=== PATIENT | female | born 1955 | race Caucasian/White ===

== ENCOUNTER → 2018-04-15 | Outpatient (CLI) | payer OTHER ==
--- NOTE | 2018-04-15 11:14 | WOMENS IMAGING REPORT ---
EXAM DESCRIPTION: BILAT SCREENING MAMMO W/CAD COMPLETED DATE/TIME: 04/15/2018 7:54 am REASON FOR STUDY: SCREENING MAMMO Z12.31 ENCNTR SCREEN MAMMOGRAM FOR MALIGNANT NEOPLASM OF [facility] COMPARISON: 2016 TECHNIQUE: Standard craniocaudal and mediolateral oblique views of each breast recorded using digita l acquisition. LIMITATIONS: None. FINDINGS: No masses, calcifications or architectural distortion. No areas of suspicion. Read with the assistance of CAD. .[facility] - R2 Cenova Version 1.3 .[facility] - R2 Cenova Version 1.3 .[facility] - R2 Cenova Version 2.4 .[facility] - R2 Cenova Version 2.4 .[facility] - R2 Instructional Material Director Version 9.2 IMPRESSION: NORMAL MAMMOGRAM. BIRADS 1. BREAST DENSITY: b. There are scattered areas of fibroglandular density. BIRAD: 1 NEGATIVE RECOMMENDATION: ROUTINE SCREENING COMMENT: The patient has been notified of the results by letter per SA requirements. Additional no tification policies are in place for contacting patient with suspicious or incomplete findings. Quality ID #[id number]: The [employer] recommends an annual screening mammogram for women aged 40 years or over. This facility utilizes a reminder system to ensure that all patients receive reminder letters, and/or direct phone calls for appointments. This includes reminders for routine scr eening mammograms, diagnostic mammograms, or other Breast Imaging Interventions when appropriate. Th is patient will be placed in the appropriate reminder system. The [employer] (ACR) has developed recommendations for screening MRI of the breast s in certain patient populations, to be used in conjunction with mammography. Breast MRI surveillanc e may be appropriate for women with more than 20% lifetime risk of developing breast cancer as deter mined by genetic testing, significant family history of the disease, or history of mantle radiation f or Hodgkins Disease. ACR Practice Guidelines 2008. TECHNICAL DOCUMENTATION: FINDING NUMBER: (1) ASSESSMENT: (1) JOB ID: [id number] [employer]- All Rights Reserved Reading location - IP/workstation name: [email or web address]
== END ==
LOC: WI 07:27
PROVIDERS: ATTEND Nurse Practitioner Family
DX: Z12.31 Encounter for screening mammogram for malignant neoplasm of breast (principal)
CPT/HCPCS: 77067

== ENCOUNTER 2018-04-25 07:12 | Day surgery (SDC) | payer OTHER ==
[2018-04-25] MEDS ORDERED: PROPOFOL INJ 200 MG/20 ML VIAL IV ONE ×2 (07:27→08:31)
[2018-04-25 09:16] VITALS: BP 105/70
--- NOTE | 2018-04-25 14:25 | Operative Report ---
Operative Report DATE OF SURGERY: 04/25/18 Operative Report: The risks, benefits and alternatives of the procedure including the risks of bleeding, perforation requiring surgery are explained to the patient in detail and informed consent is obtained. Patient is brought back to the endoscopy suite and placed in the left, lateral decubital position. Timeout was called. Propofol medication is administered. A rectal examination is done which did not reveal any masses, tears or fissures. An Olympus videoscope was introduced into the patient's rectum. The scope was then carefully advanced all the way to the cecum. The cecum was identified by the usual anatomical landmarks of the ileocecal valve was the appendiceal office. Photodocumentation is obtained. The scope was then sequentially pulled back via the various segments of the colon including the ascending colon, hepatic flexure, transverse colon, splenic flexure, descending colon and finally into the rectosigmoid portions of the colon. Retroflexion maneuver is performed. PREOPERATIVE DIAGNOSIS: Colorectal cancer screening POSTOPERATIVE DIAGNOSIS: Right-sided colon inflammation status post biopsy rule out collagenous colitis. Diverticulosis to a moderate degree. Internal hemorrhoids OPERATION: Colonoscopy with biopsy SURGEON: ROSIE SHARP ANESTHESIA: LMAC TISSUE REMOVED OR ALTERED: As noted above. COMPLICATIONS: None. ESTIMATED BLOOD LOSS: None. INTRAOPERATIVE FINDINGS: As noted above. PROCEDURE: Patient tolerated the procedure well. No immediate postprocedure complications are noted. Patient discharged in good condition. Discharge date 04/25/2018. Discharge diet: Regular. Discharge activity: Regular. 2-3-week follow-up to discuss findings. Patient is instructed to call the office or proceed to the emergency room should there be any further proximal questions. Wait on the pathology. If biopsies is negative consider a 7-year colon screening
== END 2018-04-25 09:03 | disposition home or self-care (01) ==
LOC: END 07:12
PROVIDERS: ATTEND Internal Medicine Gastroenterology
DX: Z12.11 Encounter for screening for malignant neoplasm of colon (principal); K52.9 Noninfective gastroenteritis and colitis, unspecified; K57.30 Diverticulosis of large intestine without perforation or abscess without bleeding; K64.8 Other hemorrhoids; E78.5 Hyperlipidemia, unspecified; M19.90 Unspecified osteoarthritis, unspecified site; Z87.891 Personal history of nicotine dependence; Z79.899 Other long term (current) drug therapy
CPT/HCPCS: 45380; 88305 ×2; J2704; 811

== ENCOUNTER → 2019-10-05 | Outpatient (CLI) | payer BC ==
--- NOTE | 2019-10-05 10:35 | ER RDC ASSESSMENT REPORT ---
Intake - In the Last 14 days Have you traveled outside [place]?: No Have you been in close contact with someone CONFIRMED: No Worked in Healthcare?: No - Symptoms Subjective Fever([place] feverish): Yes Chills: Yes Muscule Aches: Yes Runny Nose: No Sore Throat: Yes Cough (New or worsening chronic cough): Yes Shortness of breath: Yes Nausea or Vomiting: Yes --How many day(s)?: Reports has vomited Headache: No Abdominal Pain: Yes Diarrhea(3 or more loose stools in last 24 hours): No - Do you have any of the following Chronic lung disease: Asthma or emphysema or COPD: No Cystic Fibrosis: No Diabetes: No High Blood Pressure: No Cardiovascular Disease: Yes Cardiovascular Disease Comment: History of high cholesterol Chronic Kidney Disease: No Chronic Liver Disease: No Chronic blood disorder like Sickle Cell Disease: No Weak immune system due to disease or medication: No Neurologic condition that limits movement: No Neurological Condition Comment: With a history of migraines Developmental delay - Moderate to Severe: No Recent (within past 2 weeks) or current : No Morbid Obesity (>100 pounds over ideal weight): No Obesity Comment: Height 5 feet 2 inches weight 188 pounds - Objective Temperature: 98.0 F Objective: Given above, testing performed: If Testing Performed: Test Specimen Type Sent to General - General Information source: Patient Notes: Patient here to [facility] for Covid testing. States started feeling sick on Wednesday with fever as much as 103. Plans to contact PCP today. - Related Data Allergies/Adverse Reactions: No Known Allergies Allergy (Verified 04/25/18 07:56) Past Medical History - Social History Smoking Status: Never Smoker - Past Medical History Cardiac Medical History: Denies: Hx Coronary Artery Disease, Hx Heart Attack, Hx Hypertension Pulmonary Medical History: Denies: Hx Asthma, Hx Bronchitis, Hx COPD, Hx Pneumonia Neurological Medical History: Denies: Hx Cerebrovascular Accident, Hx Seizures Musculoskeletal Medical History: Denies Hx Arthritis Physical Exam - General General appearance: Appears well, Alert In distress: None Notes: PHYSICAL EXAMINATION: GENERAL: Well-appearing and in no acute distress. HEAD: Atraumatic, normocephalic. EYES: sclera anicteric, conjunctiva are normal. ENT: nares patent. Moist mucous membranes. NECK: Normal range of motion, supple without lymphadenopathy LUNGS: CTAB and equal. No wheezes rales or rhonchi. Respirations even and unlabored. Lung sounds clear. HEART: Regular rate and rhythm without murmurs ABDOMEN: Soft, nontender, normal bowel sounds, no guarding. EXTREMITIES: No cyanosis. NEUROLOGICAL: Normal speech. PSYCH: Normal mood, normal affect. SKIN: Warm, Dry, normal turgor, Diagnostic Results Laboratory Results: Patient instructed on negative rapid strep and negative rapid flu results. Pending strep culture. Pending Covid testing results. Patient provided instructions on COVID to include: As a person under investigation for Covid 19, the [facility], division of public health advises you to adhere to the following guidance until your test results are reported to you. If your test result is positive, you will receive additional information from your provider and your local health department at that time. Remain at home until you are cleared by the health provider or public health authorities. Keep a log of visitors to your home, notify any visitors to your home of your isolation status. If you plan to move to a new address or leave the [facility], notify the local health department in your [facility]. Call your doctor or seek care if you have an urgent medical need. Before seeking medical care, call ahead to get instructions from the provider before arriving at the medical office clinic or hospital. Notify them that you are being tested for the virus that causes Covid 19 so that arrangements can be made, as necessary, to prevent transmission to others in the healthcare setting. Next, notify the local health department in your [facility]. If a medical emergency arises and you need to call 911, inform the first responders that you are being tested for the virus that causes Covid 19. Next, notify the local health department in your [facility]. Patient Education/Counseling Counseling/Education: Patient presents with upper respiratory symptoms worrisome for possible Covid 19. Patient does not have emergency worring symptoms such as difficulty breathing, shortness of breath, chest pain, pressure, confusion or cyanosis. Patient appears suitable for discharge. Patient to follow up with PCP today. Instructed to go to the ED for persistent or worsening symptoms. Patient's vital signs are stable and patient is nontoxic in appearance. Good return precautions have been discussed with patient, patient verbalized understanding and is agreeable with discharge plan of care at this time. RDC Discharge - Discharge Clinical Impression: COVID - 19 SCREENING Condition: Stable Disposition: Home; Selfcare
[2019-10-05 11:31] LABS: A TYPE INFLUENZA AG NEGATIVE (NEGATIVE); B INFLUENZA AG NEGATIVE (NEGATIVE)
== END ==
LOC: RDC 09:54
PROVIDERS: ATTEND Nurse Practitioner Family
DX: Z20.828 Contact with and (suspected) exposure to other viral communicable diseases (principal); R50.9 Fever, unspecified; R05 Cough; R06.02 Shortness of breath; J02.9 Acute pharyngitis, unspecified; R11.11 Vomiting without nausea; R10.9 Unspecified abdominal pain; M79.10 Myalgia, unspecified site; E78.00 Pure hypercholesterolemia, unspecified
CPT/HCPCS: 87070; 87635; 87804; 87880; 99211

== ENCOUNTER 2019-10-07 18:46 | Emergency (ER) | payer BC ==
[2019-10-07 21:09] LABS: ABSOLUTE MONOCYTES (AUTO) 0.5 10^3/uL (0.1-1.4); ABSOLUTE NEUT (AUTO) 4.8 10^3/uL (1.7-8.2); BASOPHILS % (AUTO) 0.5 % (0-2); EOSINOPHILS % (AUTO) 0.3 % (0-6); HEMATOCRIT 39.5 % (36.0-47.0); MEAN CORPUSCULAR HEMOGLOBIN 29.4 pg (27.0-33.4); MEAN CORPUSCULAR HGB CONC 35.4 g/dL (32.0-36.0); MEAN CORPUSCULAR VOLUME 83 fl (80-97); PLATELET COUNT 250 10^3/uL (150-450); RED BLOOD COUNT 4.76 10^6/uL (3.72-5.28); RED CELL DISTRIBUTION WIDTH 13.4 % (11.5-14.0); SEGMENTED NEUTROPHILS % (AUTO) 65.2 % (42-78); TOTAL CELLS COUNTED % (AUTO) 100 %; WHITE BLOOD COUNT 7.3 10^3/uL (4.0-10.5)
--- NOTE | 2019-10-07 21:17 | ER Document Report ---
ED General - General Chief Complaint: Fever Stated Complaint: FEVER/HEADACHE/RASH Time Seen by Provider: 10/07/19 18:59 Primary Care Provider: SIRENA DONOHUE FNP-C [Primary Care Provider] - Follow up as needed Mode of Arrival: Ambulatory Information source: Patient Notes: This is a 64-year-old female presenting to the emergency department with multiple complaints today. Patient is complaining of left hip pain after she states that she ran into a wall about a week ago. Patient also reports over the last week she has had intermittent fevers as high as 102, body aches and a scattered rash. Patient reports she has been seen by her primary care provider and also has been COVID-19 tested. Patient reports she received a phone call today that her COVID-19 test was negative. Patient reports when she received these test results she called her primary care provider to discuss this, she states she also looked some things up on [employer] and was concerned that she should have blood work and an x-ray done. Patient denies any cough, nausea, vomiting or diarrhea. She has no chronic medical conditions. She has not had any recent travel or any known exposure to any COVID-19 positive persons. TRAVEL OUTSIDE OF THE [place] IN LAST 30 DAYS: No - Related Data Allergies/Adverse Reactions: No Known Allergies Allergy (Verified 04/25/18 07:56) Past Medical History - General Information source: Patient - Social History Smoking Status: Former Smoker Frequency of alcohol use: Occasional Drug Abuse: None Family History: Reviewed & Not Pertinent Patient has homicidal ideation: No - Past Medical History Cardiac Medical History: Reports: Hx Hypercholesterolemia Denies: Hx Coronary Artery Disease, Hx Heart Attack, Hx Hypertension Pulmonary Medical History: Denies: Hx Asthma, Hx Bronchitis, Hx COPD, Hx Pneumonia Neurological Medical History: Reports: Hx Migraine. Denies: Hx Cerebrovascular Accident, Hx Seizures Musculoskeletal Medical History: Denies Hx Arthritis Past Surgical History: Reports: Hx Orthopedic Surgery - Immunizations Hx Diphtheria, Pertussis, Tetanus Vaccination: Yes Hx Pneumococcal Vaccination: 06/07/03 Review of Systems - Review of Systems Constitutional: See HPI EENT: See HPI Cardiovascular: No symptoms reported Respiratory: No symptoms reported Gastrointestinal: No symptoms reported Genitourinary: No symptoms reported Female Genitourinary: No symptoms reported Musculoskeletal: See HPI Skin: See HPI Hematologic/Lymphatic: No symptoms reported Neurological/Psychological: No symptoms reported Physical Exam - Vital signs Vitals: Temp Pulse Resp BP Pulse Ox 99.9 F 88 18 145/68 H 95 10/07/19 18:56 10/07/19 18:56 10/07/19 18:56 10/07/19 18:56 10/07/19 18:56 - Notes Notes: PHYSICAL EXAMINATION: GENERAL: Well-appearing, well-nourished and in no acute distress. HEAD: Atraumatic, normocephalic. EYES: Pupils equal round and reactive to light, extraocular movements intact, conjunctiva are normal. ENT: Nares patent, oropharynx clear without exudates. Moist mucous membranes. NECK: Normal range of motion, supple without lymphadenopathy LUNGS: Breath sounds clear to auscultation bilaterally and equal. No wheezes rales or rhonchi. HEART: Regular rate and rhythm without murmurs ABDOMEN: Soft, nontender, nondistended abdomen. No guarding, no rebound. No masses appreciated. Female : No CVA tenderness. Musculoskeletal: Normal range of motion, no pitting or edema. No cyanosis. NEUROLOGICAL: Cranial nerves grossly intact. Normal speech, normal gait. Normal sensory, motor exams PSYCH: Normal mood, normal affect. SKIN: Warm, Dry, normal turgor, no lesions noted. Course - Re-evaluation Re-evalutation: Patient appears well, nontoxic, vital signs within normal limits. Patient does not have a fever here today. CBC CMP and urinalysis were unremarkable. Chest x-ray negative. Patient has had negative outpatient COVID-19 test, rapid strep and influenza. Likely viral illness. Patient will need to follow-up with her primary care provider if symptoms persist. Patient verbalizes understanding and agreement with this plan. - Vital Signs Vital signs: Temp Pulse Resp BP Pulse Ox 98.8 F 80 18 146/62 H 95 10/07/19 22:23 10/07/19 22:23 10/07/19 18:56 10/07/19 22:23 10/07/19 22:23 - Laboratory Result Diagrams: 10/07/19 20:47 10/07/19 20:47 Laboratory results interpreted by me: 10/07/19 10/07/19 20:47 21:05 Sodium 133.1 L Urine Ketones 80 H Ur Leukocyte Esterase TRACE H Urine Ascorbic Acid 40 H Discharge - Discharge Clinical Impression: Viral illness Condition: Stable Disposition: HOME, SELF-CARE Additional Instructions: Viral Syndrome The physician has diagnosed a viral infection. Viruses not only cause "colds," but can cause many different symptoms including generalized aching, fever, headache, cough, diarrhea, nausea, vomiting, and fatigue. The treatment, for the most part, is simply relief of symptoms. This means that antibiotics are usually not given. Rest, fluids, pain medications and, occasionally, medication for the specific symptoms that are most bothersome will be prescribed. Use good handwashing to avoid passing the virus to others. Clean the toilets, sinks, and counter surfaces in bathrooms. Launder clothing in hot water. Contact the physician if you develop any new or unusual symptoms such as severe headache, stiff neck, high fever, chest pain, productive cough, or shortness of breath. You should be rechecked if you don't see marked improvement within seven to 10 days. Your lab work and chest x-ray done today were reassuring. There is no evide nce of pneumonia or any type of systemic infection. All of your blood counts were within normal limits and your chemistries (electrolytes) were normal. I do believe you have a virus. I believe the rash is a viral rash and is not any cause for concern. It is very important to take either Tylenol 650 mg or ibuprofen 600 mg for fevers. I do understand that these sometimes trigger migraines for you but it is important to take them to help manage her fever. Drink plenty of fluids. As outlined above please follow-up with your primary care provider, call them Wednesday to schedule an appointment. Let them know you were seen here and had normal blood work and a normal chest x-ray. Return to [facility] emergency department with any new or worsening symptoms to include difficulty breathing, chest pain or shortness of breath. Referrals: SIRENA DONOHUE FNP-C [Primary Care Provider] - Follow up as needed
[2019-10-07 21:23] LABS: ALBUMIN 4.1 g/dL (3.5-5.0); ALKALINE PHOSPHATASE 66 U/L (38-126); ANION GAP 8 (5-19); ASPARTATE AMINO TRANSFERASE 34 U/L (14-36); BILIRUBIN,TOTAL 0.7 mg/dL (0.2-1.3); BLOOD UREA NITROGEN 15 mg/dL (7-20); CALCIUM 9.1 mg/dL (8.4-10.2); CARBON DIOXIDE 27 mmol/L (22-30); CHLORIDE 98 mmol/L (98-107); GLUCOSE 104 mg/dL (75-110); POTASSIUM 4.5 mmol/L (3.6-5.0); TOTAL PROTEIN 7.3 g/dL (6.3-8.2)
[2019-10-07 21:33] LABS: APPEARANCE,URINE SLIGHTLY-CLOUDY; BILIRUBIN,URINE NEGATIVE (NEGATIVE); COLOR,URINE YELLOW; GLUCOSE, URINE NEGATIVE (NEGATIVE); KETONES,URINE 80 mg/dL (NEGATIVE); LEUKOCYTE ESTERASE,URINE TRACE (NEGATIVE); NITRITE,URINE NEGATIVE (NEGATIVE); PROTEIN,URINE NEGATIVE (NEGATIVE); URINE SPECIFIC GRAVITY 1.019; UROBILINOGEN,URINE NEGATIVE mg/dL (<2.0)
--- NOTE | 2019-10-07 21:55 | RADIOLOGY REPORT (SQ) ---
EXAM DESCRIPTION: Chest radiograph one view October 07, 2019 at 7:45 PM CLINICAL HISTORY: FEVER COMPARISON: None FINDINGS: Cardiac silhouette is within normal limits. Aorta is tortuous. There is no focal parenchymal or pleural disease. There is no acute osseous process visualized. IMPRESSION: No evidence of acute cardiopulmonary disease.
[2019-10-07 22:30] VITALS: BP 146/62
== END 2019-10-07 22:33 | disposition home or self-care (01) ==
LOC: ER 18:46
DX: B34.9 Viral infection, unspecified (principal); M25.552 Pain in left hip; W22.01XA Walked into wall, initial encounter; Z87.891 Personal history of nicotine dependence
CPT/HCPCS: 36415; 71045; 80053; 81001; 85025; 99283

== ENCOUNTER 2020-02-07 11:39 | Emergency (ER) | payer BC ==
[2020-02-07] MEDS ORDERED: DEXAMETHASONE SOD PHOS INJ 10 MG/1 ML VIAL PO ONE (12:07)
[2020-02-07] MEDS ORDERED: ONDANSETRON 4 MG TAB.RAPDIS PO ONE (12:10)
--- NOTE | 2020-02-07 12:11 | ER Document Report ---
ED Flu Like - General Chief Complaint: Flu Symptoms Stated Complaint: FEVER/CHILLS/HEADACHE Time Seen by Provider: 02/07/20 11:55 Primary Care Provider: SIRENA DONOHUE FNP-C [Primary Care Provider] - Follow up as needed Notes: HPI: 64-year-old female who was diagnosed positive for coronavirus 19 on the , 3 days ago. She states she is here because she "does not feel better". She states mild nonproductive cough. No chest pain, calf pain or leg swelling. She is not having any hemoptysis. No lightheadedness or dizziness. She has had some intermittent vomiting and diarrhea. No vomiting today. No antipyretics provided today. ROS: See HPI All other review of systems reviewed and otherwise negative Reviewed vital signs and nursing note as charted by RN. PHYSICAL EXAM: CONSTITUTIONAL: Alert and oriented and responds appropriately to questions. Well-appearing; well-nourished HEAD: Normocephalic; atraumatic EYES: Sclerae non-icteric ENT: Normal nose; no rhinorrhea; moist mucous membranes; pharynx without lesions noted NECK: Supple without meningismus; non-tender; no cervical lymphadenopathy, no masses CARD: Regular rate and rhythm; no murmurs; symmetric distal pulses RESP: Normal chest excursion without splinting or tachypnea; breath sounds clear and equal bilaterally; no wheezes, no rhonchi, no rales ABD/GI: Normal bowel sounds; non-distended; soft, non-tender BACK: The back appears normal and is non-tender to palpation EXT: Normal ROM in all joints; non-tender to palpation; no edema SKIN: No acute lesions noted NEURO: CN 2-12 intact; 5/5 bilateral upper and lower extremity strength with sensation intact to light touch PSYCH: The patient's mood and manner are appropriate. Grooming and personal hygiene are appropriate. TRAVEL OUTSIDE OF THE [place] IN LAST 30 DAYS: No - Related Data Allergies/Adverse Reactions: No Known Allergies Allergy (Verified 02/07/20 12:18) Past Medical History - Social History Smoking Status: Unknown if Ever Smoked Family History: Reviewed & Not Pertinent - Past Medical History Cardiac Medical History: Reports: Hx Hypercholesterolemia Denies: Hx Coronary Artery Disease, Hx Heart Attack, Hx Hypertension Pulmonary Medical History: Denies: Hx Asthma, Hx Bronchitis, Hx COPD, Hx Pneumonia Neurological Medical History: Reports: Hx Migraine. Denies: Hx Cerebrovascular Accident, Hx Seizures Musculoskeletal Medical History: Denies Hx Arthritis Past Surgical History: Reports: Hx Orthopedic Surgery - Immunizations Hx Diphtheria, Pertussis, Tetanus Vaccination: Yes Hx Pneumococcal Vaccination: 06/07/03 Physical Exam - Vital signs Vitals: Temp Pulse Resp BP Pulse Ox 98.8 F 83 20 132/88 H 94 02/07/20 12:17 02/07/20 12:17 02/07/20 12:02/07/20 12:02/07/20 12:17 Course - Re-evaluation Re-evalutation: 02/07/20 12:09 Given the history and physical examination with the room air oxygen saturation of 95% with a heart rate of 88 with stable blood pressure, with a positive coronavirus test 3 days ago, I do not believe the patient requires any laboratory work or imaging at this time. I have a low pretest probability for pulmonary embolism. No vomiting today. No obvious tachypnea or respiratory distress. Patient states she is not a diabetic. I will provide Zofran and a dose of Decadron. I have instructed the patient regarding strict return precautions and the importance of seclusion until symptoms have abated for a period of time. 02/07/20 13:10 Patient has tolerated the p.o. challenge. No change in exam. - Vital Signs Vital signs: Temp Pulse Resp BP Pulse Ox 98.8 F 83 20 132/88 H 94 02/07/20 12:17 02/07/20 12:17 02/07/20 12:02/07/20 12:17 02/07/20 12:17 Discharge - Discharge Clinical Impression: COVID-19, Vomiting and diarrhea Fatigue Qualifiers: Fatigue type: unspecified Qualified Code(s): R53.83 - Other fatigue Condition: Fair Disposition: HOME, SELF-CARE Additional Instructions: Come back immediately for any persistent vomiting or diarrhea, leg swelling, chest pain, worsening shortness of breath or inability to breathe, or any other acute problems. Please take the Zofran as needed for nausea and vomiting. Please follow-up with your primary care physician and make sure that you quaran car yourself until 2 weeks after symptoms resolve. Prescriptions: Ondansetron [Zofran Odt 4 mg Tablet] 1 tab PO Q6H #12 tab.rapdis Referrals: SIRENA DONOHUE, BROADCAST OPERATIONS MANAGER-C [Primary Care Provider] - Follow up as needed
[2020-02-07 14:08] VITALS: BP 134/86
== END 2020-02-07 14:07 | disposition home or self-care (01) ==
LOC: ER 11:39
DX: U07.1 COVID-19 (principal); R11.10 Vomiting, unspecified; R19.7 Diarrhea, unspecified; R50.9 Fever, unspecified; R51 Headache
CPT/HCPCS: 99283; S0119; J1100